=== PATIENT | male | born 1975 | race Caucasian/White ===

== ENCOUNTER 2020-09-25 11:22 | Emergency (ER) | payer OTHER ==
[2020-09-25 11:32] VITALS: BP 138/86; PULSE 103; O2SAT 99
[2020-09-25] MEDS ORDERED: Sodium Chloride 0.9% 1000 ML 1,000 ML IV STA (11:50)
[2020-09-25] MEDS ORDERED: Zofran 4 MG/2 ML VIAL IV ONE (11:50)
[2020-09-25] MEDS ORDERED: Zofran 4 MG/2 ML VIAL ONE (12:06)
[2020-09-25] MEDS ORDERED: Sodium Chloride 0.9% 1000 ML 1,000 ML ONE (12:06)
--- NOTE | 2020-09-25 12:12 | XRAY ---
Indication: Chest pain. Overdose. Comparison: None Portable chest demonstrates left nipple jewelry. Normal appearing heart, lungs, and bony thorax.
[2020-09-25 12:18] LABS: Absolute Neutrophil Ct (ANC) 2.75 (1.4-6.9); BASOPHIL % 1.5 % (0.0-0.4); Basophil (Absolute #) 0.07 (0-0.4); Eosinophil % 4.8 % (0.00-5.0); Eosinophil (Absolute #) 0.22 (0-0.5); Hematocrit 38.9 % (42-50); Hemoglobin 12.4 gm/dl (12.5-18.0); Lymphocyte (Absolute #) 1.03 (1.0-4.6); Lymphocytes % 22.4 % (24.0-44.0); Mean Cell Volume 88.2 fl (78-100); Mean Corpuscular Hemoglobin 28.1 pg (26-32); Mean Corpuscular Hgb Concent. 31.9 g/dl (32-36); Mean Platelet Volume 8.5 fl (7.5-11.0); Monocyte (Absolute #) 0.53 (0.0-1.3); Monocytes % 11.5 % (0.0-12.0); Neutrophil % 59.8 % (36.0-66.0); Platelet Count 227 K/mm3 (150-450); Red Blood Count 4.41 M/mm3 (4.1-5.6); Red Cell Distribution Width 14.2 % (11.5-14.0); White Blood Count 4.6 K/mm3 (4.0-10.5)
[2020-09-25 12:29] LABS: ACETAMINOPHEN < 10 ug/ml (10-30); ALKALINE PHOSPHATASE 74 U/L (38-126); ANION GAP 11.6 MEQ/L (5-15); BLOOD UREA NITROGEN 10 mg/dL (9-20); CHLORIDE 99 mmol/L (98-107); Calcium 9.2 mg/dL (8.4-10.2); Carbon Dioxide 31 mmol/L (22-30); Creatinine 1 0.83 mg/dL (0.66-1.25); EST GLOMERULAR FILTRATION RATE > 60.0 ML/MIN; ETHYL ALCOHOL < 10 mg/dL (0-10); Glucose 107 mg/dL (74-106); Potassium 3.2 mmol/L (3.5-5.1); SALICYLATE < 1.0 mg/dL (2-20); SGOT/AST 59 U/L (17-59); SGPT/ALT 77 U/L (0-50); SODIUM 138 mmol/L (137-145); Total Protein 7.6 g/dL (6.3-8.2)
--- NOTE | 2020-09-25 12:48 | ERPHSYRPT ---
- History of Present Illness Time Seen by Provider: 09/25/20 11:48 Source: patient Exam Limitations: no limitations Patient Subjective Stated Complaint: PT HERE FOR BEING UNRESPONSIVE WHILE WORKING TODAY,AMBULNACE WAS CALLED, EMS STATES PT WAS UNRESPONSIVE AND CYANOTIC, THEY GAVE HIM NARCON AND HE BECAME ALERT, PT REFUSED TO TELL EMS WHAT HAPPENED, BUT TOLD NURSE HE HAD TAKEN HERION TODAY Triage Nursing Assessment: PT ALERT, BUT SLEEPY WONT ANSWER ALL OF NURSED QUESTIONS, SKIN W/D/P. ABD SOFT, RESP EASY Physician History: 44 years old male with history of substance abuse including IV abuse on Suboxone but still continues to use heroin. 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 Patient presented in the ER awake alert and oriented and reported shooting heroin before this happened. Denies any difficulty breathing and maintaining oxygen saturation around 97% on room air. Not tachypneic or tachycardic. Denies any chest pain palpitations or shortness of breath. No abdominal pain nausea or vomiting. Denies any headache. No difficulty ambulation. Does not seem in toxicated right now. Timing/Duration: today, resolved prior to arrival, improved Severity: moderate Modifying Factors: Improves With: medication Associated Symptoms: denies symptoms Allergies/Adverse Reactions: No Known Drug Allergies Allergy (Unverified 09/25/20 11:32) Home Medications: Buprenorphine HCl/Naloxone HCl [Suboxone 2 mg-0.5 mg Tablet] 1 ea BID 09/25/20 [History] Hx Influenza Vaccination/Date Given: No Hx Pneumococcal Vaccination/Date Given: No Immunizations Up to Date: Yes Travel Risk - International Travel Have you traveled outside of the country in past 3 weeks: No - Coronavirus Screening Are you exhibiting any of the following symptoms?: No Symptoms: Shortness of Breath Close contact with a COVID-19 positive Pt in past 14-21 Days: No - Vaccine Status Have you recieved a Covid-19 vaccination: No - Past Medical History Pertinent Past Medical History: No - Past Surgical History Past Surgical History: No - Social History Smoking Status: Never smoker Exposure to second hand smoke: Yes Drug Use: heroin, other Patient Lives Alone: No - Nursing Vital Signs Nursing Vital Signs: Initial Vital Signs Temperature 97.4 F 09/25/20 11:26 Pulse Rate 103 H 09/25/20 11:26 Respiratory Rate 18 09/25/20 11:26 Blood Pressure 138/86 09/25/20 11:26 O2 Sat by Pulse Oximetry 99 09/25/20 11:26 Pain Scale Pain Intensity 0 - Physical Exam SpO2: 99 Ordered Tests: Active Orders 24 hr Category Date Time Status Claims Investigator STAT Care 09/25/20 11:52 Completed EKG-ER Only STAT Care 09/25/20 11:50 Completed IV Insertion STAT Care 09/25/20 11:50 Completed CHEST 1 VIEW (PORTABLE) Stat Exams 09/25/20 11:51 Completed ACETAMINOPHEN Stat Lab 09/25/20 12:14 Completed CBC W DIFF Stat Lab 09/25/20 12:14 Completed CK (IN-HOUSE) [CK-Creatinine Phosphokinase] Stat Lab 09/25/20 12:14 Completed CMP Stat Lab 09/25/20 12:14 Completed ETHYL ALCOHOL Stat Lab 09/25/20 12:14 Completed SALICYLATE Stat Lab 09/25/20 12:14 Completed TROPONIN Q3H Lab 09/25/20 12:14 Completed Medication Summary Discontinued Medications Generic Name Dose Route Start Last Admin Trade Name Saúlq PRN Reason Stop Dose Admin Sodium Chloride 1,000 mls @ 999 mls/hr 09/25/20 11:50 09/25/20 12:07 Sodium Chloride 0.9% 1000 Ml IV 09/25/20 12:50 999 mls/hr .Q1H1M STA Administration Sodium Chloride Confirm 09/25/20 12:06 Sodium Chloride 0.9% 1000 Ml Administered 09/25/20 12:07 Dose 1,000 mls @ ud .ROUTE .STK-MED ONE Ondansetron HCl 4 mg 09/25/20 11:50 09/25/20 12:07 Zofran 4 Mg/2 Ml Vial IV 09/25/20 11:51 4 mg STAT ONE Administration Ondansetron HCl Confirm 09/25/20 12:06 Zofran 4 Mg/2 Ml Vial Administered 09/25/20 12:07 Dose 4 mg .ROUTE .STK-MED ONE Lab/Rad Data: Laboratory Result Diagrams 09/25/20 12:14 09/25/20 12:14 Laboratory Results 09/25/20 09/25/20 09/25/20 Range/Units 12:14 12:14 12:14 WBC (4.0-10.5) K/mm3 RBC (4.1-5.6) M/mm3 Hgb (12.5-18.0) gm/dl Hct (42-50) % MCV (78-100) fl MCH (26-32) pg MCHC (32-36) g/dl RDW (11.5-14.0) % Plt Count (150-450) K/mm3 MPV (7.5-11.0) fl Gran % (36.0-66.0) % Eos # (Auto) (0-0.5) Absolute Lymphs (auto) (1.0-4.6) Absolute Monos (auto) (0.0-1.3) Lymphocytes % (24.0-44.0) % Monocytes % (0.0-12.0) % Eosinophils % (0.00-5.0) % Basophils % (0.0-0.4) % Absolute Granulocytes (1.4-6.9) Basophils # (0-0.4) Sodium 138 (137-145) mmol/L Potassium 3.2 L (3.5-5.1) mmol/L Chloride 99 (98-107) mmol/L Carbon Dioxide 31 H (22-30) mmol/L Anion Gap 11.6 (5-15) MEQ/L BUN 10 (9-20) mg/dL Creatinine 0.83 (0.66-1.25) mg/dL Estimated GFR > 60.0 ML/MIN Glucose 107 H (74-106) mg/dL Calcium 9.2 (8.4-10.2) mg/dL Total Bilirubin 0.40 (0.2-1.3) mg/dL AST 59 (17-59) U/L ALT 77 H (0-50) U/L Alkaline Phosphatase 74 (38-126) U/L Creatine Kinase 91 (55-170) U/L Troponin I < 0.012 (0.000-0.034) ng/mL Serum Total Protein 7.6 (6.3-8.2) g/dL Albumin 4.0 (3.5-5.0) g/dL Salicylates < 1.0 L (2-20) mg/dL Acetaminophen < 10 L (10-30) ug/ml Ethyl Alcohol < 10 (0-10) mg/dL 09/25/20 Range/Units 12:14 WBC 4.6 (4.0-10.5) K/mm3 RBC 4.41 (4.1-5.6) M/mm3 Hgb 12.4 L (12.5-18.0) gm/dl Hct 38.9 L (42-50) % MCV 88.2 (78-100) fl MCH 28.1 (26-32) pg MCHC 31.9 L (32-36) g/dl RDW 14.2 H (11.5-14.0) % Plt Count 227 (150-450) K/mm3 MPV 8.5 (7.5-11.0) fl Gran % 59.8 (36.0-66.0) % Eos # (Auto) 0.22 (0-0.5) Absolute Lymphs (auto) 1.03 (1.0-4.6) Absolute Monos (auto) 0.53 (0.0-1.3) Lymphocytes % 22.4 L (24.0-44.0) % Monocytes % 11.5 (0.0-12.0) % Eosinophils % 4.8 (0.00-5.0) % Basophils % 1.5 (0.0-0.4) % Absolute Granulocytes 2.75 (1.4-6.9) Basophils # 0.07 (0-0.4) Sodium (137-145) mmol/L Potassium (3.5-5.1) mmol/L Chloride (98-107) mmol/L Carbon Dioxide (22-30) mmol/L Anion Gap (5-15) MEQ/L BUN (9-20) mg/dL Creatinine (0.66-1.25) mg/dL Estimated GFR ML/MIN Glucose (74-106) mg/dL Calcium (8.4-10.2) mg/dL Total Bilirubin (0.2-1.3) mg/dL AST (17-59) U/L ALT (0-50) U/L Alkaline Phosphatase (38-126) U/L Creatine Kinase (55-170) U/L Troponin I (0.000-0.034) ng/mL Serum Total Protein (6.3-8.2) g/dL Albumin (3.5-5.0) g/dL Salicylates (2-20) mg/dL Acetaminophen (10-30) ug/ml Ethyl Alcohol (0-10) mg/dL - Progress Progress: improved Progress Note: 09/25/20 12:53 44 years old is evaluated in the ER after he was found unresponsive at the r esult of injecting heroin. He was given Narcan and consciousness improved, patient was sleepy on presentation and on reevaluation is back to normal. He is not confused or altered at all. Patient does report he used heroin intermittently and he has not taken his Suboxone for almost 6 days and that was probably the reason for his increased craving. Patient EKG showed normal sinus rhythm with no acute ischemic changes. Grossly unremarkable CBC. Chest x-ray negative for any acute cardiopulmonary findings. Patient is ambulating in the ER without any assistance and does not seem confused or altered at all. Patient decided to leave AMA as he does not want to leave his job. Patient states I have done so many times in the past and have been given Narcan multiple times and I know how exactly it feels like and it is not any different than usual for me". He decided to leave AMA, signed paperwork and walked out of the ER in a stable condition. Counseled pt/family regarding: lab results, diagnosis, need for follow-up, rad results - Departure Clinical Impression: Heroin overdose Qualifiers: Encounter type: initial encounter Injury intent: undetermined intent Qualified Code(s): T40.1X4A - Poisoning by heroin, undetermined, initial encounter Condition: Stable Critical Care Time: No Referrals: DOCTOR,NO FAMILY [Primary Care Provider] -
== END 2020-09-25 12:45 | disposition left against medical advice (07) ==
LOC: ED 11:22
DX: T40.1X4A Poisoning by heroin, undetermined, initial encounter (principal); Z79.899 Other long term (current) drug therapy
CPT/HCPCS: 36000; 36415; 71045; 80053; 80307; 82550; 84484; 85025; 93005; 93041; 96374; 99284; G0480; J2405